=== PATIENT | male | born 1980 ===

== ENCOUNTER 2021-10-16 15:43 | Emergency (ER) | payer OTHER ==
--- NOTE | 2021-10-16 17:52 | Emergency Department Report ---
ED General Adult HPI - General Chief complaint: Chest Pain Stated complaint: NECK PAIN Time Seen by Provider: 10/16/21 17:39 Source: patient, EMS Mode of arrival: Stretcher Limitations: No Limitations - History of Present Illness Initial comments: 41-year-old male complain acute onset of left sided neck pain going down to left shoulder. Denies having any trauma. Denies having any fever chills or cough. Pain radiates down to left neck but denies have any weakness, denies having any numbness. -: Sudden Location: neck Radiation: extremity Quality: aching Consistency: intermittent, now resolved Improves with: none Worsens with: none Associated Symptoms: denies other symptoms Treatments Prior to Arrival: none - Related Data Previous Rx's Medication Instructions Recorded Last Taken Type Naproxen [Naprosyn] 500 mg PO BID PRN #20 tablet 10/16/21 Unknown Rx Allergies Allergy/AdvReac Type Severity Reaction Status Date / Time No Known Allergies Allergy Verified 10/16/21 15:52 ED Review of Systems ROS: Stated complaint: NECK PAIN Other details as noted in HPI Comment: All other systems reviewed and negative Constitutional: no symptoms reported Eyes: as per HPI ENT: as per HPI Respiratory: no symptoms reported Cardiovascular: denies: chest pain Endocrine: no symptoms reported Genitourinary: as per HPI Musculoskeletal: as per HPI Skin: as per HPI Neurological: as per HPI Psychiatric: as per HPI Hematological/Lymphatic: as per HPI ED Past Medical Hx - Past Medical History Previous Medical History?: Yes Hx Hypertension: Yes Hx Diabetes: Yes - Surgical History Past Surgical History?: No - Social History Smoking Status: Never Smoker Substance Use Type: None - Medications Home Medications: Home Medications Medication Instructions Recorded Confirmed Last Taken Type Naproxen [Naprosyn] 500 mg PO BID PRN #20 tablet 10/16/21 Unknown Rx ED Physical Exam - General Limitations: No Limitations General appearance: alert, in no apparent distress - Head Head exam: Present: atraumatic, normocephalic, normal inspection - Eye Eye exam: Present: normal appearance, PERRL - ENT ENT exam: Present: normal exam, normal orophraynx, mucous membranes dry - Neck Neck exam: Present: normal inspection, full ROM. Absent: tenderness, meningismus, lymphadenopathy, thyromegaly - Respiratory Respiratory exam: Present: normal lung sounds bilaterally. Absent: respiratory distress - Cardiovascular Cardiovascular Exam: Present: regular rate, normal rhythm - GI/Abdominal GI/Abdominal exam: Present: soft. Absent: distended, tenderness, guarding ED Course Vital Signs 10/16/21 10/16/21 10/16/21 15:49 17:27 18:41 Pulse Rate 83 72 76 Respiratory 16 18 18 Rate Blood Pressure 140/89 Blood Pressure 128/97 141/96 [Left] O2 Sat by Pulse 99 98 96 Oximetry ED Medical Decision Making - Lab Data Result diagrams: 10/16/21 17:53 10/16/21 17:53 - EKG Data EKG shows normal: sinus rhythm, axis, intervals, QRS complexes, ST-T waves Rate: normal Critical care attestation.: If time is entered above; I have spent that time in minutes in the direct care of this critically ill patient, excluding procedure time. ED Disposition Clinical Impression: Cervical radiculopathy Disposition: HOME / SELF CARE / HOMELESS Is pt being admited?: No Does the pt Need Aspirin: No Condition: Stable Instructions: Cervical Radiculopathy, Radicular Pain Prescriptions: Naproxen [Naprosyn] 500 mg PO BID PRN #20 tablet PRN Reason: Muscle Spasm Referrals: PRIMARY CARE, [Primary Care Provider] - 3-5 Days Time of Disposition: 19:50
[2021-10-16 18:08] LABS: Basophils # (Auto) 0.1 K/mm3 (0.0-0.1); Basophils % (Auto) 0.8 % (0.0-1.8); Eosinophils % (Auto) 0.3 % (0.0-4.3); Hematocrit 46.6 % (35.5-45.6); Lymphocytes # (Auto) 1.9 K/mm3 (1.2-5.4); Lymphocytes % (Auto) 25.4 % (13.4-35.0); Mean Corpuscular HGB Conc 34 % (32-34); Mean Corpuscular Volume 87 fl (84-94); Monocytes # (Auto) 0.5 K/mm3 (0.0-0.8); Monocytes % (Auto) 6.1 % (0.0-7.3); Platelet Count 230 K/mm3 (140-440); Red Blood Count 5.38 M/mm3 (3.65-5.03); Red Cell Distribution Width 13.5 % (13.2-15.2)
[2021-10-16 18:23] LABS: Alanine Aminotransferase 89 units/L (7-56); Albumin 4.4 g/dL (3.9-5); BUN/Creatinine Ratio 14; Blood Urea Nitrogen 13 mg/dL (9-20); Calcium 9.5 mg/dL (8.4-10.2); Hemolysis Index 14
[2021-10-16 18:42] VITALS: BP 141/96
--- NOTE | 2021-10-16 18:46 | XRay Report ---
LEFT SHOULDER 3 VIEWS INDICATION / CLINICAL INFORMATION: pain COMPARISON: None available. FINDINGS: BONES / JOINT(S): No acute fracture or subluxation. No significant arthritis. SOFT TISSUES: No significant abnormality. ADDITIONAL FINDINGS: None. IMPRESSION: No acute findings. CHEST 1 VIEW INDICATION: pain. COMPARISON: None. FINDINGS: Support devices: None. Heart: Normal. Lungs/Pleura: No acute pulmonary or pleural findings. IMPRESSION: 1. No acute findings. CERVICAL SPINE 4 VIEWS INDICATION: Neck pain COMPARISON: None. FINDINGS: No acute, displaced fracture is seen. Alignment is within normal limits. Disc space height is maintained. No significant degenerative changes. IMPRESSION: 1. No acute findings. Signer Name: Mario Guevara MD Signed: 10/16/2021 6:42 PM Workstation Name: [email or web address]
--- NOTE | 2021-10-18 08:50 | Electrocardiograph Report ---
[facility] Test Date: 2021-10-16 Test Time: 17:10:43 Pat Name: LAUREL CHAUDHARI Department: Room: Gender: M Truck Driver Helper: LEWIS : 1980 Requested By: KIZZY SUNSHINE Order Number: [id number] Reading MD: Brian Schmitz Measurements Intervals [place] Rate: 78 P: 56 MN: 136 QRS: 40 QRSD: 81 T: 4 QT: 338 QTc: 387 Interpretive Statements Sinus rhythm nonspecific st-t No previous ECG available for comparison Electronically Signed On 10-18-2021 8:50:06 EDT by Brian Schmitz
== END 2021-10-16 20:47 | disposition home or self-care (01) ==
LOC: ED 15:43
DX: M54.12 Radiculopathy, cervical region (principal); I10 Essential (primary) hypertension; E11.9 Type 2 diabetes mellitus without complications
CPT/HCPCS: 36415; 71045; 72040; 80053; 85025; 93005; 99284